=== PATIENT | female | born 1950 | race Caucasian/White ===

== ENCOUNTER 2017-03-22 15:13 | Emergency (ER) | payer MEDICARE ==
[2017-03-22 15:38] VITALS: BP 150/81
--- NOTE | 2017-03-22 15:54 | UC ---
Neck Pain HPI - HPI Summary HPI Summary: This is a 66 yo female with hypothyroidism and GERD who presents with c/o L sided neck/shoulder pain. She denies recent trauma or acute injury. She watches her 1,3 and 5 yo grandchildren during the week and carries the baby quite a bit. She has had similar symptoms in the past and has been prescribed Flexeril which she has been taking for the last 2d without any changes. Her massaged the area yesterday with some relief. Denies weakness, numbness or tingling in the associated arm. No associated RATLIFF. - History of Current Complaint Chief Complaint: UCGeneralIllness Stated Complaint: NECK/LEFT SHOULDER/UPPER BACK PAIN Hx Last Menstrual Period: hysterectomy 2004 - Allergies/Home Medications Allergies/Adverse Reactions: Allergies Allergy/AdvReac Type Severity Reaction Status Date / Time No Known Allergies Allergy Verified 03/22/17 15:24 Home Medications: Home Medications Omeprazole CAP* [Prilosec CAP* 20 MG] 1 tab DAILY 03/22/17 [History Confirmed ] PMH/Surg Hx/FS Hx/Imm Hx Endocrine History: Thyroid Disease GI/ History: Gastroesophageal Reflux - Surgical History Surgical History: Yes Surgery Procedure, Year, and Place: GALL BLADDER REMOVAL, EYE SURGERY- DESTATCHED RETNA. CARPAL TUNNEL REPAIR, FOOT SURGERY, HAMMER TOES, HYSTERECTOMY - Family History Known Family History: Positive: Cardiac Disease, Hypertension, Diabetes - Social History Alcohol Use: None Substance Use Type: None Smoking Status (MU): Never Smoked Tobacco Household Exposure Type: Cigarettes - Immunization History Most Recent Influenza Vaccination: 2016 Most Recent Tetanus Shot: UTD Review Of Systems Constitutional: Positive: Negative Skin: Positive: Negative Eyes: Positive: Negative ENT: Positive: Negative Respiratory: Positive: Negative Cardiovascular: Positive: Negative Gastrointestinal: Positive: Negative Genitourinary: Positive: Negative Musculoskeletal: Positive: Arthralgia, Decreased ROM Neurological: Positive: Negative Psychological: Positive: Negative All Other Systems Reviewed And Are Negative: Yes Physical Exam Triage Information Reviewed: Yes Appearance: Well-Appearing Vital Signs: Initial Vital Signs Temp 97.6 F 03/22/17 15:27 Pulse 69 03/22/17 15:27 Resp 18 03/22/17 15:27 BP 150/81 03/22/17 15:27 Pulse Ox 98 03/22/17 15:27 Vital Signs Reviewed: Yes Neck: Positive: Supple, Other: - mild TTP in L paraspinal region Respiratory: Positive: Lungs clear, Normal breath sounds. Negative: Crackles, Rhonchi, Stridor, Wheezing Cardiovascular: Positive: RRR, No Murmur Abdomen Description: Positive: Nontender, Soft Neurological: Positive: Alert, Muscle Tone Normal, Other: - strength intact, sensation grossly intact Neck Pain Course/Dx - Course Course Of Treatment: This is a 66 yo female with a 2d h/o L sided neck and shoulder pain which has not responded to flexeril. No indication for imaging, no neurologic compromise. Recommend treatment with NSAIDs, Baclofen, heat and massage - Differential Dx/Diagnosis Differential Dx/HQI/PQRI: Arthritis, Dislocation, Sprain, Strain Provider Diagnoses: 1. Cervical strain Discharge - Discharge Plan Condition: Stable Disposition: HOME Prescriptions: Baclofen TAB* [Lioresal TAB*] 10 mg PO TID #30 tab Naproxen Sodium [Naproxen Sodium 500 MG TAB] 500 mg PO BID #60 tab Patient Education Materials: Cervical Strain (ED) Referrals: Destini Schultz MD [Primary Care Provider] - If Needed Additional Instructions: Instructions: 1. Take medications as directed. Be aware of sedating effect of the baclofen 2. Apply heat frequently 3. Ask your for regular light massage
== END 2017-03-22 15:55 | disposition home or self-care (01) ==
LOC: UCCORT 15:13
DX: S16.1XXA Strain of muscle, fascia and tendon at neck level, initial encounter (principal); X58.XXXA Exposure to other specified factors, initial encounter; Y93.9 Activity, unspecified; Y92.9 Unspecified place or not applicable; M25.512 Pain in left shoulder; E07.9 Disorder of thyroid, unspecified; K21.9 Gastro-esophageal reflux disease without esophagitis; Z90.49 Acquired absence of other specified parts of digestive tract; Z90.710 Acquired absence of both cervix and uterus; Z77.22 Contact with and (suspected) exposure to environmental tobacco smoke (acute) (chronic)
CPT/HCPCS: 99212; G0463